=== PATIENT | female | born 1960 | race Caucasian/White ===

== ENCOUNTER 2017-12-23 09:44 | Emergency (ER) | payer OTHER ==
[~2017-12-23] VITALS: Ht 149.9 cm; Wt 61.2 kg
[~2017-12-23 09:44] MED LIST: GUAIFENESIN DM1 EACH PO; LEVAQUIN 750 M750 MG PO
[2017-12-23 10:22] LABS: ABSOLUTE LYMPHOCYTES 1.4 thou/uL (0.8-5.3); ABSOLUTE MONOCYTES 0.5 thou/uL (0.0-1.2); ABSOLUTE NEUTROPHILS 2.5 thou/uL (1.6-8.1); BASOPHILS 0.9 %; EOSINOPHILS 0.3 %; HEMATOCRIT 38.9 % (37.0-47.0); HEMOGLOBIN 13.1 gm/dL (12.0-15.0); LYMPHOCYTES 32.1 %; MCHC 33.7 g/dL (28.0-37.0); MCV 94.9 fL (80.0-100.0); MONOCYTES 11.9 %; MPV 8.1 fl. (7.2-11.1); NUCLEATED RBCS 0 /100WBC; PLATELET COUNT* 200 thou/uL (150-400); POLYS 54.8 %; RDW-CV 13.9 % (10.5-14.5); WBC 4.5 thou/uL (4.0-11.0)
[2017-12-23 10:37] LABS: ANION GAP 3 mmol/L (7-16); BUN 10 mg/dL (7-18); CALCIUM 8.2 mg/dL (8.5-10.1); CHLORIDE 106 mmol/L (98-107); CO2 31 mmol/L (21-32); CREATININE 0.8 mg/dL (0.6-1.3); GLUCOSE 92 mg/dL (70-99); POTASSIUM 3.5 mmol/L (3.5-5.1); SODIUM 140 mmol/L (136-145)
[2017-12-23 10:42] LABS: ALBUMIN 3.2 g/dL (3.4-5.0); ALKALINE PHOSPHATASE 69 U/L (46-116); LIPASE 81 U/L (73-393); SGOT 16 U/L (15-37); SGPT 16 U/L (30-65); TOTAL BILIRUBIN 0.2 mg/dL (<0.1-1.0); TOTAL PROTEIN 6.4 g/dL (6.4-8.2); TROPONIN-I LEVEL <0.06 ng/mL (<0.06)
[2017-12-23] MEDS ORDERED: MOTION RELIEF25 MG PO (12:10)
[2017-12-23] MEDS ORDERED: CLEOCIN HCL150 MG PO (12:10)
[2017-12-23 12:33] VITALS: BP 162/95
--- NOTE | 2017-12-23 16:02 | EKG ---
[place] [address] ELECTROCARDIOGRAM REPORT Name: SANJUANITA BEAL Room: [facility]#: [id number] Admission: 12/23/17 Attend Phys: Discharge: 12/23/17 Date of : 60 Report #: [id number] THIS REPORT FOR: //name// [place] [facility] Test Date: 2017-12-23 Test Time: 10:39:02 Pat Name: SANJUANITA BEAL Department: Room: Gender: F Site Inspector: Jeronimo GODDARD : 1960 Requested By: Kaila Hartmann Order Number: [id number] MD: Parth Perea Measurements Intervals Jacob Rate: 85 P: 71 VA: 104 QRS: 15 QRSD: 105 T: 46 QT: 374 QTc: 445 Interpretive Statements Sinus rhythm Short VA interval Left atrial enlargement RSR' in V1 or V2, right VCD or RVH Baseline wander in lead(s) V5 Compared to ECG 09/23/2017 16:16:53 Short VA interval now present Atrial abnormality now present Right ventricular hypertrophy now present RSR' in V1 or V2 now present Sinus tachycardia no longer present Electronically Signed On 12-23-2017 16:02:27 LEASE EXAMINER by Parth Perea [email or web address] <ELECTRONICALLY SIGNED> By: Parth Perea MD, [facility] 12/23/17 1602 [id number] [id number] Parth Perea MD, [facility] /EPI
== END 2017-12-23 12:34 | disposition home or self-care (01) ==
LOC: M.ERS 09:44
PROVIDERS: Physician Assistant
DX: J32.9 Chronic sinusitis, unspecified (principal); N80.9 Endometriosis, unspecified; F17.200 Nicotine dependence, unspecified, uncomplicated; Z90.49 Acquired absence of other specified parts of digestive tract; Z85.51 Personal history of malignant neoplasm of bladder; Z85.71 Personal history of Hodgkin lymphoma; Z88.0 Allergy status to penicillin; Z88.2 Allergy status to sulfonamides